=== PATIENT | male | born 1960 | race Caucasian/White ===

== ENCOUNTER 2019-03-30 00:23 | Inpatient (IN) | payer OTHER ==
[2019-03-30] VITALS (8 sets, daily range): BP systolic 99–110; BP diastolic 54–70; PULSE 74–90; RESP 14–23; Ht 170.2 cm; Wt 103.9 kg
[~2019-03-30] VITALS: Ht 170.2 cm; Wt 103.9 kg
[2019-03-30] MEDS ORDERED: SOD CHLORIDE 0.9% 1,000 ML IV STA (01:13)
[2019-03-30] MEDS ORDERED: OCTREOTIDE 50 MCG in SOD CHLORIDE 0.9% 25 ML IVPB STA (01:13)
[2019-03-30] MEDS ORDERED: PANTOPRAZOLE IV 80 MG in SOD CHLORIDE 0.9% 100 ML IVPB STA (01:13)
[2019-03-30] MEDS ORDERED: OCTREOTIDE 500 MCG in SOD CHLORIDE 0.9% 49 ML IV STA (01:13)
[2019-03-30] MEDS ORDERED: PANTOPRAZOLE IV 80 MG in SOD CHLORIDE 0.9% 100 ML IV STA (01:13)
[2019-03-30] MEDS ORDERED: CEFTRIAXONE 1 GM/50 ML (PMX) 50 ML IVPB STA (01:13)
[2019-03-30] MEDS ORDERED: ONDANSETRON 4 MG INJ IV STA (01:13)
[2019-03-30] MEDS ORDERED: SOD CHLORIDE 0.9% 500 ML IV ONE ×2 (07:00→13:00)
[2019-03-30] MEDS: DEXTROSE 5%-0.9% NACL 1,000 ML IV SCH ×2 (08:59→16:50)
[2019-03-30] MEDS ORDERED: ONDANSETRON 4 MG INJ ONE (11:13)
--- NOTE | 2019-03-30 11:50 | CONS ---
Assessment/Plan Assessment/Plan Hospital Course (Demo Recall) Summary Assessment and Plan: Assessment: Active hematemesis Anemia secondary to above Alcoholic liver cirrhosis Plan: Agree with and continue PPI drip/octreotide drip Keep n.p.o. Urgent EGD today, by Endoscopy - risks/benefits/alternatives/indications of procedure and sedation/anesthesia discussed with patient who states understanding and gives informed consent to proceed. Monitor H/H q 6 hrs, will transfuse as needed Patient seen in collaboration with Dr. Cabrera CC: SURYA CABRERA MD ; Consultation Date/Type/Reason Admit Date/Time Date of Consultation: March 30, 2019 Type of Consult GI Reason for Consultation Hematemesis Date/Time of Note DATE: 03/30/19 TIME: 11:42 Hx of Present Illness This is a 58-year-old male with past medical history of alcoholic liver cirrhosis with esophageal varices who presented to the hospital with complaints of hematemesis. Patient states he started feeling poorly yesterday mostly nauseated. Early this morning patient woke up with complaints of nausea and hematemesis. He came to the emergency department for further evaluation. With initial labs patient's hemoglobin is noted to be 11 was rechecked several hours later and decreased to 9. He has been started on PPI drip as well as octreotide NG tube was placed with about 500 mL of blood removed however patient began to have complaints of nausea and gagging and excellently pulled out his NG tube and proceeded to vomit moderate amount of blood with noted clots. At time evaluation patient's blood pressures in the 90s since he feels much better after emesis discussed plan for urgent EGD today. I reviewed risk/benefits of sedation and procedure patient verbalized understanding is agreeable. Of note his last EGD was about 1 year ago at that time he did have esophageal ligation. Patient states he currently does not take any medication other than omeprazole for reflux. Review of Systems: A 12 system, review was conducted and is negative except as noted in the HPI or here. Past Medical History Home Meds No Active Prescriptions or Reported Meds Medications Current Medications Dextrose/Sodium Chloride 1,000 ml @ 120 mls/hr Q8H20M IV Last administered on 03/30/19at 08:59; Admin Dose 120 MLS/HR; Start 03/30/19 at 08:30 Allergies: Coded Allergies: No Known Allergy (Unverified , 5/22/19) Social History Smoking Status: Never smoker Exam/Review of Systems Exam Vitals Vital Signs Date Temp Pulse Resp B/P (MAP) Pulse Ox O2 O2 Flow FiO2 Time Delivery Rate 03/30/19 18 76/53 (61) 97 Room Air 11:04 03/30/19 88 10:16 03/30/19 99.0 00:31 Exam PHYSICAL EXAMINATION: GENERAL: Alert & oriented x 3, in no acute distress SKIN: No lesions HEAD: Normocephalic, atraumatic, no tenderness. EYES: Pupils equal reactive to light, no discharge. EARS/NOSE AND THROAT: Ears normal, nose normal. NECK: Supple, no masses CHEST: Inspection within normal limits. CARDIOVASCULAR: Heart: Regular rate and rhythm RESPIRATORY: Lungs clear to auscultation GASTROINTESTINAL AND LIVER: Abdomen: Soft, non tenderness, non-distended, normoactive bowel sounds. Rectal: Deferred. EXTREMITIES: No cyanosis, clubbing or edema. Results Result Diagram: 03/30/19 0955 03/30/19 0123 Results 24hrs Laboratory Tests Test 03/30/19 01:23 03/30/19 09:55 White Blood Count 12.2 H Red Blood Count 3.37 L Hemoglobin 11.8 L 9.0 #L Hematocrit 34.4 L Mean Corpuscular Volume 102.1 H Mean Corpuscular Hemoglobin 35.0 H Mean Corpuscular Hemoglobin Concent 34.3 Red Cell Distribution Width 13.0 Platelet Count 142 Mean Platelet Volume 11.6 H Immature Granulocytes % 0.200 Neutrophils % 42.5 Lymphocytes % 42.2 Monocytes % 12.5 H Eosinophils % 1.9 Basophils % 0.7 Nucleated Red Blood Cells % 0.0 Immature Granulocytes # 0.030 Neutrophils # 5.2 Lymphocytes # 5.1 H Monocytes # 1.5 H Eosinophils # 0.2 Basophils # 0.1 Nucleated Red Blood Cells # 0.0 Prothrombin Time 14.7 Prothrombin Time Ratio 1.1 INR International Normalized Ratio 1.14 Activated Partial Thromboplast Time 28.7 Sodium Level 140 Potassium Level 3.4 L Chloride Level 107 Carbon Dioxide Level 24 Anion Gap 9 Blood Urea Nitrogen 21 H Creatinine 0.64 Est Glomerular Filtrat Rate mL/min > 60 Glucose Level 197 Calcium Level 8.8 Total Bilirubin 1.3 Direct Bilirubin 0.00 Indirect Bilirubin 1.3 H Aspartate Amino Transf (AST/SGOT) 57 H Alanine Aminotransferase (ALT/SGPT) 48 Alkaline Phosphatase 89 Troponin I < 0.012 Total Protein 6.6 Albumin 3.3 Globulin 3.30 H Albumin/Globulin Ratio 1.00 Medications Medication Current Medications Dextrose/Sodium Chloride 1,000 ml @ 120 mls/hr Q8H20M IV Last administered on 03/30/19at 08:59; Admin Dose 120 MLS/HR; Start 03/30/19 at 08:30 MIGUEL ANGEL WASHINGTON March 30, 2019 11:50
[2019-03-30] MEDS ORDERED: SOD CHLORIDE 0.9% 1,000 ML IV ONE (12:00)
[2019-03-30] MEDS ORDERED: LIDOCAINE 1% (MPF) 5 ML VIAL SC ONE (13:00)
[2019-03-30] MEDS ORDERED: OCTREOTIDE 500 MCG in SOD CHLORIDE 0.9% 49 ML IV ONE (13:07)
[2019-03-30] MEDS ORDERED: PANTOPRAZOLE IV 80 MG in SOD CHLORIDE 0.9% 100 ML IV ONE (13:07)
--- NOTE | 2019-03-30 14:52 | PREAC ---
Date/Time of Note Date/Time of Note DATE: 03/30/19 TIME: 14:50 Anesthesia Eval and Record Evaluation Time Pre-Procedure Interview DATE: 03/30/19 TIME: 14:50 Age 58 Sex male NPO: 8 hrs Preoperative diagnosis GI Bleeding, Esophageal Varicies Planned procedure EGD Past Medical History Past Medical History: Includes Hepatic: Cirrhosis Heme: Anemia Surgery & Anesthesia Issues No known issue Meds Anticoagulation: No Beta Marlon within 24 hr: No Reason Beta Marlon not given: Pt. not on B-Marlon No Active Prescriptions or Reported Meds Current Medications Dextrose/Sodium Chloride 1,000 ml @ 120 mls/hr Q8H20M IV Last administered on 03/30/19at 08:59; Admin Dose 120 MLS/HR; Start 03/30/19 at 08:30 Ondansetron HCl (Zofran Inj) 4 mg Q4H PRN IV N/V; Start 03/30/19 at 12:00 Pantoprazole 80 mg/Sodium Chloride 100 ml @ 10 mls/hr ONCE ONCE IV Last administered on 03/30/19at 13:50; Admin Dose 10 MLS/HR; Start 03/30/19 at 13:07; Stop 03/30/19 at 23:06 Octreotide Acetate 500 mcg/ Sodium Chloride 50 ml @ 5 mls/hr ONCE ONCE IV Last administered on 03/30/19at 13:50; Admin Dose 5 MLS/HR; Start 03/30/19 at 13:07; Stop 03/30/19 at 23:06 Meds reviewed: Yes Allergies Coded Allergies: No Known Allergy (Unverified , 03/30/19) Allergies Reviewed: Yes Labs/Studies Labs Reviewed: Reviewed by anesthesiologist Result Diagram: 03/30/19 1305 03/30/19 0123 Laboratory Tests 03/30/19 01:23 03/30/19 13:05 Blood Bank Test 03/30/19 01:23 Antibody Screen NEGATIVE Blood Type A POSITIVE test: N/A Studies: ECG (n/a), CXR (n/a) Pre-procedure Exam Last vitals Vital Signs Date Temp Pulse Resp B/P (MAP) Pulse Ox O2 O2 Flow FiO2 Time Delivery Rate 03/30/19 78 16 95/59 (71) 97 Room Air 14:00 03/30/19 99.0 00:31 Airway: Adequate mouth opening, Adequate thyromental dist Mallampati: Mallampati II Teeth: Normal Lung: Normal Heart: Normal ASA Physical Status ASA physical status: 3 Emergency: E Planned Anesthetic General/MAC: MAC Planned Pain Management Parenteral pain med Pre-operative Attestations Prior to commencing anesthesia and surgery, the patient was re-evaluated, there was verification of: *The patient's identity *The results of appropriate recent lab work and preoperative vital signs *The above evaluation not changing prior to induction *Anesthetic plan, risk benefits, alternative and complications discussed with patient/family; questions answered; patient/family understands, accepts and wishes to proceed. IRVIN DANIEL MD March 30, 2019 14:52
[2019-03-30] MEDS ORDERED: ONDANSETRON 4 MG INJ IV PRN (15:00)
[2019-03-30] MEDS ORDERED: LABETALOL HCL 20MG INJ IV PRN (15:00)
[2019-03-30] MEDS ORDERED: EPHEDrine 25 MG/5 ML SYG IV PRN (15:00)
[2019-03-30] MEDS ORDERED: FENTAnyl 50 MCG/ML VIAL IV PRN (15:00)
[2019-03-30] MEDS ORDERED: HYDROmorphONE 1 MG/5 ML IV SYRINGE IV PRN (15:00)
[2019-03-30] MEDS ORDERED: hydrALAzine 20 MG INJ IV PRN (15:00)
--- NOTE | 2019-03-30 15:01 | HP ---
DATE OF ADMISSION: 03/30/2019 CHIEF COMPLAINT: Vomiting bright red blood. HISTORY OF PRESENT ILLNESS: A 58-year-old male with remote history of alcohol abuse and gastric vari larry, presents to the emergency room with complaint of bright red blood, hematemesis x1. The patient also noted melena. He denies any abdominal pain. No bright red blood per rectum. The patient has h istory of heavy alcohol abuse for many years and quit drinking 1 year prior to admission. Initial he moglobin was 11.8 with platelet count of 142,000. Repeat hemoglobin was 9. Basic metabolic panel an d liver function tests were within normal limits. The patient was tendency hypotensive and responded to IV fluids. PAST MEDICAL HISTORY: 1. History of alcohol abuse. 2. End-stage liver disease. 3. History of gastric varices. MEDICATIONS PRIOR TO ADMISSION: None. SOCIAL HISTORY: The patient lives at home. He has history of heavy alcohol abuse, but denies drinki ng for the last year prior to admission. PHYSICAL EXAMINATION: GENERAL: Well-developed, well-nourished male who is in no apparent distress. VITAL SIGNS: Blood pressure 96/59, pulse 88, respirations of 14, room air saturation 94%. HEENT: Extraocular muscles are intact. Pupils are equal and reactive to light bilaterally. Sclerae are anicteric. Oropharynx is clear. NG tube in place. LUNGS: Clear to auscultation bilaterally. CARDIAC: Regular rate and rhythm. No murmurs, rubs or gallops. ABDOMEN: Soft, nontender, nondistended. Normoactive bowel sounds. EXTREMITIES: No clubbing, cyanosis or edema. NEUROLOGICAL: Grossly nonfocal. ASSESSMENT: 1. A 58-year-old male with upper gastrointestinal bleed, most likely due to varices. 2. Acute blood loss anemia. 3. End-stage alcoholic liver disease. 4. History of alcohol abuse. The patient reports being sober x1 year. PLAN: 1. Admit to telemetry. Continue IV Protonix drip. Continue IV octreotide. Continue IV fluid. 2. Monitor hemoglobin closely. 3. GI consultation was requested. Dictated By: FELIPE EDWARDS/JESSE Conf#: [id number] DID#: [id number] CC: SURYA KIRBY; PAULIE SANTOYO MD;*[facility]*
--- NOTE | 2019-03-30 15:08 | PAC ---
Date/Time of Note Date/Time of Note DATE: 03/30/19 TIME: 15:07 Post-Anesthesia Notes Post-Anesthesia Note Last documented vital signs Vital Signs Date Temp Pulse Resp B/P (MAP) Pulse Ox O2 O2 Flow FiO2 Time Delivery Rate 03/30/19 98.0 78 16 95/59 (71) 97 Room Air 15:14 03/30/19 99.0 00:31 Activity: WNL Respiratory function: WNL Cardiovascular function: WNL Mental status: Baseline Pain reasonably controlled: Yes Hydration appropriate: Yes Nausea/Vomiting absent: Yes IRVIN DANIEL MD March 30, 2019 15:08
[2019-03-30] MEDS ORDERED: PHENYLephrine (100 MCG/ML) 10ML SYG ONE (15:09)
[2019-03-30] MEDS ORDERED: PROPOFOL 40 ML ONE (15:09)
[2019-03-30] MEDS ORDERED: METOCLOPRAMIDE 10 MG INJ IV ONE (15:30)
--- NOTE | 2019-03-30 19:30 | QN ---
Documentation Comment Observation Note: Time: 4 hours Family Hx: Negative for diabetes Evaluation: Multiple exams showed improving symptoms and no evidence of clinical decompensation. PAULIE SANTOYO MD March 30, 2019 19:30
[2019-03-31] VITALS (24 sets, daily range): BP systolic 81–110; BP diastolic 43–72; PULSE 83–112; RESP 0–20
[2019-03-31] MEDS: DEXTROSE 5%-0.9% NACL 1,000 ML IV SCH ×3 (00:18→17:50)
[2019-03-31] MEDS: ONDANSETRON 4 MG INJ IV PRN ×2 (04:19→10:07)
--- NOTE | 2019-03-31 10:25 | PN ---
Date/Time of Note Date/Time of Note DATE: 03/31/19 TIME: 10:22 Subjective Doing well. No abdominal pain, nausea, or vomiting. Had several melanic stools Objective Vitals Vital Signs Date Temp Pulse Resp B/P (MAP) Pulse Ox O2 O2 Flow FiO2 Time Delivery Rate 03/31/19 90 18 90/57 (68) 98 09:00 03/31/19 98.3 Room Air 08:00 03/30/19 2.0 21:15 Intake and Output 03/30/19 03/30/19 03/31/19 1515:00 23:00 07:00 IntakeIntake Total 2000 ml 645 ml 1040 ml BalanceBalance 2000 ml 645 ml 1040 ml Clear to auscultation bilaterally Regular rate and rhythm Soft nontender nondistended normoactive bowel sounds No edema Nonfocal Results Result Diagram: 03/31/19 0049 03/31/19 0257 Medications Medications Current Medications Dextrose/Sodium Chloride 1,000 ml @ 120 mls/hr Q8H20M IV Last administered on 03/31/19at 00:18; Admin Dose 120 MLS/HR; Start 03/30/19 at 08:30 Ondansetron HCl (Zofran Inj) 4 mg Q4H PRN IV N/V Last administered on 03/31/19at 10:07; Admin Dose 4 MG; Start 03/30/19 at 12:00 VTE Prophylaxis Risk score (from Nsg)>0 risk: 2 SCD applied (from Nsg): Yes Lines/Catheters IV Catheter Type: Saline Lock Madrigal in Place: No Assessment/Plan Assessment/Plan 58-year-old male with upper GI bleed due to varices Status post EGD and banding of varices Acute blood loss anemia End-stage alcoholic liver disease. Sober x1 year Hypotension Continue ICU monitoring Continue octreotide and Protonix drip Repeat hemoglobin Transfuse packed RBC as needed GI follow-up FELIPE GANDHI MD March 31, 2019 10:25
--- NOTE | 2019-03-31 11:47 | PN ---
Date/Time of Note Date/Time of Note DATE: 03/31/19 TIME: 11:40 Assessment/Plan VTE Prophylaxis Risk score (from Ns)>0 risk: 2 SCD applied (from Ns): Yes Pharmacological prophylaxis: other (scds) Lines/Catheters IV [facility]ter Type (from [facility] Saline Lock Urinary Cath still in place: No Assessment/Plan Hospital Course Summary Assessment and Plan: Assessment: Hematemesis- resolved EGD 03/30/2019 Grade II-III/IV esophageal varices Anika-Granger tear at the bottom of variceal channel. Post endoscopic variceal ligation x5 with no residual bleeding Otherwise normal EGD Anemia secondary to above Alcoholic liver cirrhosis Melena Plan: Continue PPI/Octreotide today Start Lactulose- to prevent HE and assist old blood through GI tract Will start Rocephin- given increased in WBC and recent esophageal bleed, in a patient with liver cirrhosis. Maintain close observation- and will continue to closely monitor need to repeat EGD Monitor H/H q 6 hrs, will transfuse as needed F/u EGD in 3 months Patient seen in collaboration with Dr. Cabrera Subjective: Course reviewed with nursing staff Patient interviewed and examined All labs, imaging and other results reviewed The patient with x3 episodes of melena today Decrease in HGB despite 1 units PRBCs given No further c/o of hematemesis. Pt does c/o some nausea Will maintain close observation- currently no plan to repeat EGD However, this may change pending on symptoms. Exam PHYSICAL EXAMINATION: GENERAL: Alert & oriented x 3, in no acute distress SKIN: No lesions HEAD: Normocephalic, atraumatic, no tenderness. EYES: Pupils equal reactive to light, no discharge. EARS/NOSE AND THROAT: Ears normal, nose normal. NECK: Supple, no masses CHEST: Inspection within normal limits. CARDIOVASCULAR: Heart: Regular rate and rhythm RESPIRATORY: Lungs clear to auscultation GASTROINTESTINAL AND LIVER: Abdomen: Soft, non tenderness, non-distended, normoactive bowel sounds. Rectal: Deferred. EXTREMITIES: No cyanosis, clubbing or edema. Result Diagram: 03/31/19 1015 03/31/19 0257 Results 24hrs Laboratory Tests Test 03/30/19 13:05 03/30/19 21:08 03/31/19 00:49 03/31/19 02:57 Hemoglobin 8.4 L 7.8 L 7.3 L Hematocrit 24.6 #L 23.4 L 21.9 L Sodium Level 142 Potassium Level 4.1 Chloride Level 117 H Carbon Dioxide Level 23 Anion Gap 2 L Blood Urea Nitrogen 23 H Creatinine 0.78 Est Glomerular > 60 Filtrat Rate mL/min Glucose Level 240 H Calcium Level 7.2 L Test 03/31/19 10:15 White Blood Count 18.0 #H Red Blood Count 1.94 #L Hemoglobin 6.7 *L Hematocrit 20.1 L Mean Corpuscular 103.6 H Volume Mean Corpuscular 34.5 H Hemoglobin Mean Corpuscular 33.3 Hemoglobin Concent Red Cell 16.1 #H Distribution Width Platelet Count 123 L Mean Platelet Volume 11.2 H Immature 0.900 H Granulocytes % Neutrophils % 71.3 Lymphocytes % 18.0 Monocytes % 8.9 Eosinophils % 0.3 Basophils % 0.6 Nucleated Red Blood 0.0 Cells % Immature 0.160 H Granulocytes # Neutrophils # 12.8 H Lymphocytes # 3.2 H Monocytes # 1.6 H Eosinophils # 0.1 Basophils # 0.1 Nucleated Red Blood 0.0 Cells # Pathologist YES Review (Hematology) Exam/Review of Systems Exam Vitals Vital Signs Date Temp Pulse Resp B/P (MAP) Pulse Ox O2 O2 Flow FiO2 Time Delivery Rate 03/31/19 90 18 90/57 (68) 98 09:00 03/31/19 98.3 Room Air 08:00 03/30/19 2.0 21:15 Intake and Output 03/30/19 03/30/19 03/31/19 1515:00 23:00 07:00 IntakeIntake Total 2000 ml 645 ml 1040 ml BalanceBalance 2000 ml 645 ml 1040 ml Results Results 24hrs Laboratory Tests Test 03/30/19 13:05 03/30/19 21:08 03/31/19 00:49 03/31/19 02:57 Hemoglobin 8.4 L 7.8 L 7.3 L Hematocrit 24.6 #L 23.4 L 21.9 L Sodium Level 142 Potassium Level 4.1 Chloride Level 117 H Carbon Dioxide Level 23 Anion Gap 2 L Blood Urea Nitrogen 23 H Creatinine 0.78 Est Glomerular > 60 Filtrat Rate mL/min Glucose Level 240 H Calcium Level 7.2 L Test 03/31/19 10:15 White Blood Count 18.0 #H Red Blood Count 1.94 #L Hemoglobin 6.7 *L Hematocrit 20.1 L Mean Corpuscular 103.6 H Volume Mean Corpuscular 34.5 H Hemoglobin Mean Corpuscular 33.3 Hemoglobin Concent Red Cell 16.1 #H Distribution Width Platelet Count 123 L Mean Platelet Volume 11.2 H Immature 0.900 H Granulocytes % Neutrophils % 71.3 Lymphocytes % 18.0 Monocytes % 8.9 Eosinophils % 0.3 Basophils % 0.6 Nucleated Red Blood 0.0 Cells % Immature 0.160 H Granulocytes # Neutrophils # 12.8 H Lymphocytes # 3.2 H Monocytes # 1.6 H Eosinophils # 0.1 Basophils # 0.1 Nucleated Red Blood 0.0 Cells # Pathologist YES Review (Hematology) Medications Medication Current Medications Dextrose/Sodium Chloride 1,000 ml @ 120 mls/hr Q8H20M IV Last administered on 03/31/19at 00:18; Admin Dose 120 MLS/HR; Start 03/30/19 at 08:30 Ondansetron HCl (Zofran Inj) 4 mg Q4H PRN IV N/V Last administered on 03/31/19at 10:07; Admin Dose 4 MG; Start 03/30/19 at 12:00 Lactulose (Enulose) 20 gm DAILY PRN PO CONSTIPATION; Start 03/31/19 at 12:00; Status MIGUEL ANGEL FONSECA March 31, 2019 11:47
[2019-03-31] MEDS ORDERED: LACTULOSE 30ML CUP PO PRN (12:00)
[2019-03-31] MEDS: CEFTRIAXONE 1 GM/50 ML (PMX) 50 ML IVPB SCH (14:04)
[2019-04-01] VITALS (25 sets, daily range): BP systolic 88–115; BP diastolic 56–92; PULSE 93–113; RESP 12–26
[2019-04-01] MEDS: DEXTROSE 5%-0.9% NACL 1,000 ML IV SCH ×3 (01:26→18:34)
[2019-04-01] MEDS: PANTOPRAZOLE IV 80 MG in SOD CHLORIDE 0.9% 100 ML IV SCH ×2 (08:00→18:00)
[2019-04-01] MEDS: OCTREOTIDE 1 MG in DEXTROSE 5% 95 ML IV SCH (08:00)
--- NOTE | 2019-04-01 09:57 | PN ---
Date/Time of Note Date/Time of Note DATE: 04/01/19 TIME: 09:54 Subjective Doing well. No abdominal pain, nausea, or vomiting. Continues to have melanic stools Objective Vitals Vital Signs Date Temp Pulse Resp B/P (MAP) Pulse Ox O2 O2 Flow FiO2 Time Delivery Rate 04/01/19 98 18 102/63 95 09:00 (76) 04/01/19 98.4 Room Air 08:00 03/30/19 2.0 21:15 Intake and Output 03/31/19 03/31/19 04/01/19 1515:00 23:00 07:00 IntakeIntake Total 700 ml 500 ml 200 ml BalanceBalance 700 ml 500 ml 200 ml Clear to auscultation bilaterally Rapid rate no murmurs or gallops Soft obese nontender nondistended normoactive bowel sounds No edema Nonfocal Results Result Diagram: 04/01/19 0655 03/31/19 0257 Medications Medications Current Medications Dextrose/Sodium Chloride 1,000 ml @ 120 mls/hr Q8H20M IV Last administered on 04/01/19at 01:26; Admin Dose 120 MLS/HR; Start 03/30/19 at 08:30 Ondansetron HCl (Zofran Inj) 4 mg Q4H PRN IV N/V Last administered on 03/31/19at 10:07; Admin Dose 4 MG; Start 03/30/19 at 12:00 Lactulose (Enulose) 20 gm DAILY PRN PO CONSTIPATION; Start 03/31/19 at 12:00 Ceftriaxone Sodium 50 ml @ 100 mls/hr Q24H IVPB Last administered on 03/31/19at 14:04; Admin Dose 100 MLS/HR; Start 03/31/19 at 12:00 Octreotide Acetate 1 mg/ Dextrose 100 ml @ 5 mls/hr Q20H IV ; Start 04/01/19 at 08:00 Pantoprazole 80 mg/Sodium Chloride 100 ml @ 10 mls/hr Q10H IV ; Start 04/01/19 at 08:00 VTE Prophylaxis Risk score (from Nsg)>0 risk: 2 SCD applied (from Nsg): Yes Lines/Catheters IV Catheter Type: Saline Lock Madrigal in Place: No Assessment/Plan Assessment/Plan 58-year-old male with persistent upper GI bleed Multiple varices, status post ligation Anika-Granger tear Acute blood loss anemia, requiring transfusion with several units of packed RBC History of alcohol abuse End-stage liver disease Transfuse 2 additional units of packed RBC Monitor hemoglobin closely Continue ICU monitoring Repeat EGD at 1230 Case was discussed with GI Plan of care was discussed with the patient FELIPE GANDHI MD April 01, 2019 09:57
--- NOTE | 2019-04-01 11:25 | PREAC ---
Date/Time of Note Date/Time of Note DATE: 04/01/19 TIME: 11:08 Anesthesia Eval and Record Evaluation Time Pre-Procedure Interview DATE: 04/01/19 TIME: 11:08 Age 58 Sex male NPO: 2 hrs Preoperative diagnosis Gi bleed S/P banding Planned procedure EGd Past Medical History Past Medical History: Includes Hepatic: Alcohol abuse Surgery & Anesthesia Issues Hx of difficult intubation Meds Anticoagulation: No Beta Marlon within 24 hr: No Reason Beta Marlon not given: Other No Active Prescriptions or Reported Meds Current Medications Dextrose/Sodium Chloride 1,000 ml @ 120 mls/hr Q8H20M IV Last administered on 04/01/19at 01:26; Admin Dose 120 MLS/HR; Start 03/30/19 at 08:30 Ondansetron HCl (Zofran Inj) 4 mg Q4H PRN IV N/V Last administered on 03/31/19at 10:07; Admin Dose 4 MG; Start 03/30/19 at 12:00 Lactulose (Enulose) 20 gm DAILY PRN PO CONSTIPATION; Start 03/31/19 at 12:00 Ceftriaxone Sodium 50 ml @ 100 mls/hr Q24H IVPB Last administered on 03/31/19at 14:04; Admin Dose 100 MLS/HR; Start 03/31/19 at 12:00 Octreotide Acetate 1 mg/ Dextrose 100 ml @ 5 mls/hr Q20H IV ; Start 04/01/19 at 08:00 Pantoprazole 80 mg/Sodium Chloride 100 ml @ 10 mls/hr Q10H IV ; Start 04/01/19 at 08:00 Meds reviewed: Yes Allergies Coded Allergies: No Known Allergy (Unverified , 03/30/19) Allergies Reviewed: Yes Labs/Studies Labs Reviewed: Reviewed by anesthesiologist Result Diagram: 04/01/19 0655 03/31/19 0257 Laboratory Tests 04/01/19 06:55 test: N/A Studies: ECG Pre-procedure Exam Last vitals Vital Signs Date Temp Pulse Resp B/P (MAP) Pulse Ox O2 O2 Flow FiO2 Time Delivery Rate 04/01/19 98 18 102/63 95 09:00 (76) 04/01/19 98.4 Room Air 08:00 03/30/19 2.0 21:15 Airway: Adequate thyromental dist Mallampati: Mallampati III Teeth: Abnormal (chart review) Lung: Abnormal (chart review) Heart: Abnormal (per Hna P Normal though EF25 % ) ASA Physical Status ASA physical status: 4 Emergency: E (BS elevated if called urgent or emergent GI will proceed > PMD to order coverage) Planned Anesthetic General/MAC: MAC Pre-operative Attestations Prior to commencing anesthesia and surgery, the patient was re-evaluated, there was verification of: *The patient's identity *The results of appropriate recent lab work and preoperative vital signs *The above evaluation not changing prior to induction *Anesthetic plan, risk benefits, alternative and complications discussed with patient/family; questions answered; patient/family understands, accepts and wishes to proceed. TOSIN MON MD April 01, 2019 11:19
--- NOTE | 2019-04-01 11:51 | HPN ---
Date/Time of Note Date/Time of Note DATE: 04/01/19 TIME: 11:51 Interval H&P Admission Note Pt. seen H&P reviewed: No system changes ISHAAN REVELES April 01, 2019 11:51
[2019-04-01] MEDS ORDERED: DEXTROSE 50% 50 ML SYRINGE IV PRN ×2 (12:00)
[2019-04-01] MEDS ORDERED: GLUCOSE GEL 15 GRAM TUBE PO PRN ×2 (12:00)
[2019-04-01] MEDS ORDERED: GLUCAGON 1 MG INJ IM PRN (12:00)
[2019-04-01] MEDS: CEFTRIAXONE 1 GM/50 ML (PMX) 50 ML IVPB SCH (12:00)
[2019-04-01] MEDS ORDERED: GLUCOSE GEL 15 GRAM TUBE BUCCAL PRN (12:00)
[2019-04-01] MEDS: INSULIN ASPART [NOVOLOG] 3 ML PEN SC SCH ×3 (12:09→21:14)
[2019-04-01] MEDS ORDERED: INSULIN ASPART [NOVOLOG] 3 ML PEN SC ONE (14:00)
[2019-04-01] MEDS ORDERED: ACCU-CHEK XX ONE (14:00)
[2019-04-01] MEDS ORDERED: PROPOFOL 40 ML ONE (14:19)
[2019-04-01] MEDS ORDERED: LIDOCAINE 2% (SDV) 5 ML INJ ONE (14:19)
[2019-04-01] MEDS ORDERED: PHENYLephrine (100 MCG/ML) 10ML SYG ONE (14:20)
[2019-04-01] MEDS ORDERED: MIDAZOLAM 1 MG/ML 2 ML INJ ONE (14:20)
[2019-04-01] MEDS ORDERED: ETOMIDATE 20 MG INJ ONE (14:22)
[2019-04-01] MEDS ORDERED: PHENYLephrine 10 MG INJ ONE (14:30)
--- NOTE | 2019-04-01 15:11 | PAC ---
Date/Time of Note Date/Time of Note DATE: 04/01/19 TIME: 15:09 Post-Anesthesia Notes Post-Anesthesia Note Last documented vital signs Vital Signs Date Temp Pulse Resp B/P (MAP) Pulse Ox O2 O2 Flow FiO2 Time Delivery Rate 04/01/19 107 18 108/70 95 14:00 (83) 04/01/19 Room Air 12:20 04/01/19 98.2 12:00 03/30/19 2.0 21:15 Activity: WNL Respiratory function: WNL Cardiovascular function: Other (sinus tach as preop) Mental status: Baseline Pain reasonably controlled: Yes Hydration appropriate: Yes Nausea/Vomiting absent: Yes TOSIN MON MD April 01, 2019 15:11
--- NOTE | 2019-04-01 18:53 | RADRPT ---
Vent Rate: 106 bpm RR Interval: 568 msec NV Interval: 157 msec QRS Duration: 67 msec QT Interval: 375 msec QTC Interval: 498 msec P-R-T [place]: 49 - 46 - 31 degrees Sinus tachycardia...rate> 99 Electronically Signed By: Bi Bah
[2019-04-02] VITALS (37 sets, daily range): BP systolic 80–153; BP diastolic 48–72; PULSE 84–112; RESP 10–24
[2019-04-02] MEDS: ACCUCHECK AT 2AM (Patients on SS coverage) XX SCH (02:00)
[2019-04-02] MEDS: DEXTROSE 5%-0.9% NACL 1,000 ML IV SCH (03:10)
[2019-04-02] MEDS: OCTREOTIDE 1 MG in DEXTROSE 5% 95 ML IV SCH (04:21)
[2019-04-02] MEDS: PANTOPRAZOLE IV 80 MG in SOD CHLORIDE 0.9% 100 ML IV SCH ×2 (04:21→14:00)
[2019-04-02] MEDS ORDERED: INSULIN ASPART [NOVOLOG] 3 ML PEN SC ONE (05:00)
[2019-04-02] MEDS ORDERED: INSULIN GLARGINE [LANTus] (100 UNITS/ML) SYG SC SCH (08:00)
[2019-04-02] MEDS: INSULIN ASPART [NOVOLOG] 3 ML PEN SC SCH ×4 (09:10→21:13)
[2019-04-02] MEDS: INSULIN GLARGINE [LANTus] (100 UNITS/ML) SYG SC SCH (09:10)
[2019-04-02] MEDS: SOD CHLORIDE 0.9% 1,000 ML IV SCH ×2 (11:11→21:17)
--- NOTE | 2019-04-02 11:55 | PN ---
Date/Time of Note Date/Time of Note DATE: 04/02/19 TIME: 11:46 Subjective Doing well. No abdominal pain, nausea, vomiting. Had 2 episodes of melanotic stools earlier Objective Vitals Vital Signs Date Temp Pulse Resp B/P (MAP) Pulse Ox O2 O2 Flow FiO2 Time Delivery Rate 04/02/19 98.3 91 14 96/67 (77) 95 Room Air 08:00 03/30/19 2.0 21:15 Intake and Output 04/01/19 04/01/19 04/02/19 1515:00 23:00 07:00 IntakeIntake Total 460 ml 855 ml 780 ml BalanceBalance 460 ml 855 ml 780 ml Clear to auscultation bilaterally Regular rate and rhythm Soft obese nontender nondistended normoactive bowel sounds Diffuse 1+ edema in bilateral upper and lower extremities Nonfocal Results Result Diagram: 04/02/19 0954 04/02/19 0514 Medications Medications Current Medications Ondansetron HCl (Zofran Inj) 4 mg Q4H PRN IV N/V Last administered on 03/31/19at 10:07; Admin Dose 4 MG; Start 03/30/19 at 12:00 Lactulose (Enulose) 20 gm DAILY PRN PO CONSTIPATION; Start 03/31/19 at 12:00 Ceftriaxone Sodium 50 ml @ 100 mls/hr Q24H IVPB Last administered on 04/01/19at 12:00; Admin Dose 100 MLS/HR; Start 03/31/19 at 12:00 Octreotide Acetate 1 mg/ Dextrose 100 ml @ 5 mls/hr Q20H IV Last administered on 04/02/19at 04:21; Admin Dose 5 MLS/HR; Start 04/01/19 at 08:00 Pantoprazole 80 mg/Sodium Chloride 100 ml @ 10 mls/hr Q10H IV Last administered on 04/02/19at 04:21; Admin Dose 10 MLS/HR; Start 04/01/19 at 08:00 Insulin Aspart (Novolog Insulin Pen) NOVOLOG *MODERATE* ALGORITHM WITH MEALS BE DTIME SC Last administered on 04/02/19at 09:10; Admin Dose 6 UNIT; Start 04/01/19 at 12:00 Miscellaneous Information 1 ea NOTE XX ; Start 04/01/19 at 12:00 Glucose (Glutose) 15 gm Q15M PRN PO DECREASED GLUCOSE; Start 04/01/19 at 12:00 Glucose (Glutose) 22.5 gm Q15M PRN PO DECREASED GLUCOSE; Start 04/01/19 at 12:00 Dextrose (D50w Syringe) 25 ml Q15M PRN IV DECREASED GLUCOSE; Start 04/01/19 at 12:00 Dextrose (D50w Syringe) 50 ml Q15M PRN IV DECREASED GLUCOSE; Start 04/01/19 at 12:00 Glucagon (Glucagen) 1 mg Q15M PRN IM DECREASED GLUCOSE; Start 04/01/19 at 12:00 Glucose (Glutose) 15 gm Q15M PRN BUCCAL DECREASED GLUCOSE; Start 04/01/19 at 12:00 Diagnostic Test (Pha) (Accu-Chek) 1 ea 02 XX ; Start 04/02/19 at 02:00 Insulin Glargine (Lantus) 15 units DAILY@0800 SC Last administered on 04/02/19at 09:10; Admin Dose 15 UNITS; Start 04/02/19 at 08:00 Sodium Chloride 1,000 ml @ 100 mls/hr Q10H IV Last administered on 04/02/19at 11:11; Admin Dose 100 MLS/HR; Start 04/02/19 at 11:00 VTE Prophylaxis Risk score (from Nsg)>0 risk: 2 SCD applied (from Nsg): Yes Lines/Catheters IV Catheter Type: Saline Lock Madrigal in Place: No Assessment/Plan Assessment/Plan 58-year-old male with acute upper GI bleed due to gastric varices and Anika- Granger tear Acute blood loss anemia, status post packed RBC transfusion times several units Persistent upper GI bleed Status post repeat EGD with inability to control the bleed. TIPS was recommended Type 2 diabetes mellitus Continue ICU monitoring Monitor hemoglobin closely and transfuse as needed Arrange transfer to [facility] for TIPS Case was discussed with Dr Lisset GAN. Plan of care was discussed with the spring encaser, medical health researcher, and FELIPE London MD April 02, 2019 11:54
[2019-04-02] MEDS ORDERED: PANT40VI7 IV (12:06)
[2019-04-02] MEDS ORDERED: CEFT1PIG2 IVPB (12:06)
[2019-04-02] MEDS ORDERED: OCTR1000 IJ (12:06)
[2019-04-02] MEDS: CEFTRIAXONE 1 GM/50 ML (PMX) 50 ML IVPB SCH (12:22)
[2019-04-02] MEDS ORDERED: LIDOCAINE 1% (MPF) 5 ML VIAL SC ONE (13:30)
--- NOTE | 2019-04-02 15:08 | PN ---
Date/Time of Note Date/Time of Note DATE: 04/02/19 TIME: 14:54 Assessment/Plan VTE Prophylaxis Risk score (from Ns)>0 risk: 2 SCD applied (from Ns): Yes Pharmacological prophylaxis: other (scds) Lines/Catheters IV 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 Post endoscopic variceal ligation x5 with no residual bleeding Otherwise normal EGD Repeat EGD 04/01/2019 Upper GI bleedpossible variceal versus continued bleeding from unhealed Anika-Granger tear Recent variceal bandingbands are in place and not dislodged Esophageal varices appear to be smaller Unable to see an isolated Anika-Granger tear Red blood noted along the GE junction and stomach and this obscures visualization despite aggressive lavage and suctioning Anemia secondary to above Alcoholic liver cirrhosis Melena Leukocytosis Plan: Patient has received 4 units of Packed cells, in the past 24hours- will order 2 units FFP- continue to closely monitor patient. Recommend urgent transfer to [place] or tertiary center for possible TIPS placement given recurrent upper GI bleed possible 2/2 to esophageal varices vs unhealed Anika-Granger tear. Continue PPI/Octreotide at this time Continue Rocephin- given increased in WBC and recent esophageal bleed, in a patient with liver cirrhosis.- x7 days Monitor H/H q 6 hrs, will transfuse as needed F/u EGD in 3 months Patient seen in collaboration with Dr. Cabrera/Lisset Subjective: Course reviewed with nursing staff Patient interviewed and examined All labs, imaging and other results reviewed Pt resting in bed, no c/on/v- currently having melena discussed current plan of care. Family at bedside Maintain close observation. Exam PHYSICAL EXAMINATION: GENERAL: Alert & oriented x 3 SKIN: No lesions HEAD: Normocephalic, atraumatic, no tenderness. EYES: Pupils equal reactive to light, no discharge. EARS/NOSE AND THROAT: Ears normal, nose normal. NECK: Supple, no masses CHEST: Inspection within normal limits. CARDIOVASCULAR: Heart: Regular rate and rhythm RESPIRATORY: Lungs clear to auscultation GASTROINTESTINAL AND LIVER: Abdomen: Soft, non tenderness, non-distended, normoactive bowel sounds. Rectal: Deferred. EXTREMITIES: No cyanosis, clubbing or edema. Result Diagram: 04/02/19 1253 04/02/19 0514 Results 24hrs Laboratory Tests Test 04/01/19 15:12 04/01/19 16:43 04/01/19 20:59 04/02/19 03:29 White Blood Count 19.3 H Red Blood Count 2.35 L Hemoglobin 7.4 L Hematocrit 22.4 L Mean Corpuscular 95.3 Volume Mean Corpuscular 31.5 Hemoglobin Mean Corpuscular 33.0 Hemoglobin Concen t Red Cell 18.6 H Distribution Width Platelet Count 112 L Mean Platelet 10.8 H Volume Immature 1.000 H Granulocytes % Neutrophils % 59.8 Lymphocytes % 23.7 Monocytes % 14.7 H Eosinophils % 0.3 Basophils % 0.5 Nucleated Red 1.7 H Blood Cells % Immature 0.200 H Granulocytes # Neutrophils # 11.5 H Lymphocytes # 4.6 H Monocytes # 2.8 H Eosinophils # 0.1 Basophils # 0.1 Nucleated Red 0.3 H Blood Cells # Prothrombin Time 17.0 H Prothrombin Time 1.3 Ratio INR International 1.37 Normalized Ratio Bedside Glucose 229 H 285 H 447 *H Test 04/02/19 05:14 04/02/19 05:14 04/02/19 05:18 04/02/19 08:14 Sodium Level 138 Potassium Level 4.1 Chloride Level 115 H Carbon Dioxide 19 L Level Anion Gap 4 L Blood Urea 39 H Nitrogen Creatinine 0.82 Est Glomerular > 60 Filtrat Rate mL/min Glucose Level 271 H Calcium Level 6.8 L Lab Scanned BLOOD TRANSFUSIO Report N Bedside Glucose 302 H 243 H Test 04/02/19 09:54 04/02/19 12:25 04/02/19 12:53 White Blood Count 20.7 H Red Blood Count 2.69 L Hemoglobin 8.3 L 7.8 L Hematocrit 25.3 L 23.5 L Mean Corpuscular 94.1 Volume Mean Corpuscular 30.9 Hemoglobin Mean Corpuscular 32.8 Hemoglobin Concen t Red Cell 17.8 H Distribution Width Platelet Count 119 L Mean Platelet 11.0 H Volume Immature 1.800 H Granulocytes % Neutrophils % 53.7 Lymphocytes % 29.8 Monocytes % 12.7 H Eosinophils % 1.4 Basophils % 0.6 Nucleated Red 4.2 H Blood Cells % Immature 0.380 H Granulocytes # Neutrophils # 11.1 H Lymphocytes # 6.2 H Monocytes # 2.6 H Eosinophils # 0.3 Basophils # 0.1 Nucleated Red 0.9 H Blood Cells # Bedside Glucose 215 Exam/Review of Systems Exam Vitals Vital Signs Date Temp Pulse Resp B/P (MAP) Pulse Ox O2 O2 Flow FiO2 Time Delivery Rate 04/02/19 91 17 102/66 100 14:00 (78) 04/02/19 Room Air 12:00 04/02/19 98.3 08:00 03/30/19 2.0 21:15 Intake and Output 04/01/19 04/01/19 04/02/19 1515:00 23:00 07:00 IntakeIntake Total 460 ml 855 ml 780 ml BalanceBalance 460 ml 855 ml 780 ml Results Results 24hrs Laboratory Tests Test 04/01/19 15:12 04/01/19 16:43 04/01/19 20:59 04/02/19 03:29 White Blood Count 19.3 H Red Blood Count 2.35 L Hemoglobin 7.4 L Hematocrit 22.4 L Mean Corpuscular 95.3 Volume Mean Corpuscular 31.5 Hemoglobin Mean Corpuscular 33.0 Hemoglobin Concen t Red Cell 18.6 H Distribution Width Platelet Count 112 L Mean Platelet 10.8 H Volume Immature 1.000 H Granulocytes % Neutrophils % 59.8 Lymphocytes % 23.7 Monocytes % 14.7 H Eosinophils % 0.3 Basophils % 0.5 Nucleated Red 1.7 H Blood Cells % Immature 0.200 H Granulocytes # Neutrophils # 11.5 H Lymphocytes # 4.6 H Monocytes # 2.8 H Eosinophils # 0.1 Basophils # 0.1 Nucleated Red 0.3 H Blood Cells # Prothrombin Time 17.0 H Prothrombin Time 1.3 Ratio INR International 1.37 Normalized Ratio Bedside Glucose 229 H 285 H 447 *H Test 04/02/19 05:14 04/02/19 05:14 04/02/19 05:18 04/02/19 08:14 Sodium Level 138 Potassium Level 4.1 Chloride Level 115 H Carbon Dioxide 19 L Level Anion Gap 4 L Blood Urea 39 H Nitrogen Creatinine 0.82 Est Glomerular > 60 Filtrat Rate mL/min Glucose Level 271 H Calcium Level 6.8 L Lab Scanned BLOOD TRANSFUSIO Report N Bedside Glucose 302 H 243 H Test 04/02/19 09:54 04/02/19 12:25 04/02/19 12:53 White Blood Count 20.7 H Red Blood Count 2.69 L Hemoglobin 8.3 L 7.8 L Hematocrit 25.3 L 23.5 L Mean Corpuscular 94.1 Volume Mean Corpuscular 30.9 Hemoglobin Mean Corpuscular 32.8 Hemoglobin Concen t Red Cell 17.8 H Distribution Width Platelet Count 119 L Mean Platelet 11.0 H Volume Immature 1.800 H Granulocytes % Neutrophils % 53.7 Lymphocytes % 29.8 Monocytes % 12.7 H Eosinophils % 1.4 Basophils % 0.6 Nucleated Red 4.2 H Blood Cells % Immature 0.380 H Granulocytes # Neutrophils # 11.1 H Lymphocytes # 6.2 H Monocytes # 2.6 H Eosinophils # 0.3 Basophils # 0.1 Nucleated Red 0.9 H Blood Cells # Bedside Glucose 215 Medications Medication Current Medications Ondansetron HCl (Zofran Inj) 4 mg Q4H PRN IV N/V Last administered on 03/31/19at 10:07; Admin Dose 4 MG; Start 03/30/19 at 12:00 Lactulose (Enulose) 20 gm DAILY PRN PO CONSTIPATION; Start 03/31/19 at 12:00 Ceftriaxone Sodium 50 ml @ 100 mls/hr Q24H IVPB Last administered on 04/02/19at 12:22; Admin Dose 100 MLS/HR; Start 03/31/19 at 12:00 Octreotide Acetate 1 mg/ Dextrose 100 ml @ 5 mls/hr Q20H IV Last administered on 04/02/19at 04:21; Admin Dose 5 MLS/HR; Start 04/01/19 at 08:00 Pantoprazole 80 mg/Sodium Chloride 100 ml @ 10 mls/hr Q10H IV Last administered on 04/02/19at 04:21; Admin Dose 10 MLS/HR; Start 04/01/19 at 08:00 Insulin Aspart (Novolog Insulin Pen) NOVOLOG *MODERATE* ALGORITHM WITH MEALS BEDTIME SC Last administered on 04/02/19at 12:38; Admin Dose 4 UNIT; Start 04/01/19 at 12:00 Miscellaneous Information 1 ea NOTE XX ; Start 04/01/19 at 12:00 Glucose (Glutose) 15 gm Q15M PRN PO DECREASED GLUCOSE; Start 04/01/19 at 12:00 Glucose (Glutose) 22.5 gm Q15M PRN PO DECREASED GLUCOSE; Start 04/01/19 at 12:00 Dextrose (D50w Syringe) 25 ml Q15M PRN IV DECREASED GLUCOSE; Start 04/01/19 at 12:00 Dextrose (D50w Syringe) 50 ml Q15M PRN IV DECREASED GLUCOSE; Start 04/01/19 at 12:00 Glucagon (Glucagen) 1 mg Q15M PRN IM DECREASED GLUCOSE; Start 04/01/19 at 12:00 Glucose (Glutose) 15 gm Q15M PRN BUCCAL DECREASED GLUCOSE; Start 04/01/19 at 12:00 Diagnostic Test (Pha) (Accu-Chek) 1 ea 02 XX ; Start 04/02/19 at 02:00 Insulin Glargine (Lantus) 15 units DAILY@0800 SC Last administered on 04/02/19at 09:10; Admin Dose 15 UNITS; Start 04/02/19 at 08:00 Sodium Chloride 1,000 ml @ 100 mls/hr Q10H IV Last administered on 04/02/19at 11:11; Admin Dose 100 MLS/HR; Start 04/02/19 at 11:00 MIGUEL ANGEL [place] April 02, 2019 15:04
[2019-04-03] VITALS (29 sets, daily range): BP systolic 103–156; BP diastolic 51–89; PULSE 71–95; RESP 12–28
[2019-04-03] MEDS: PANTOPRAZOLE IV 80 MG in SOD CHLORIDE 0.9% 100 ML IV SCH ×3 (01:23→21:00)
[2019-04-03] MEDS: OCTREOTIDE 1 MG in DEXTROSE 5% 95 ML IV SCH ×2 (01:24→08:01)
[2019-04-03] MEDS: ACCUCHECK AT 2AM (Patients on SS coverage) XX SCH (02:00)
[2019-04-03] MEDS: SOD CHLORIDE 0.9% 1,000 ML IV SCH ×2 (06:35→17:00)
[2019-04-03] MEDS: INSULIN ASPART [NOVOLOG] 3 ML PEN SC SCH ×4 (08:55→21:00)
[2019-04-03] MEDS: INSULIN GLARGINE [LANTus] (100 UNITS/ML) SYG SC SCH (08:55)
--- NOTE | 2019-04-03 09:34 | PN ---
Date/Time of Note Date/Time of Note DATE: 04/03/19 TIME: 09:28 Subjective Doing well. No abdominal pain, nausea, or vomiting. Continues to have melena and bloody stools Objective Vitals Vital Signs Date Temp Pulse Resp B/P (MAP) Pulse Ox O2 O2 Flow FiO2 Time Delivery Rate 04/03/19 98.9 82 13 128/59 94 Room Air 08:00 (82) 03/30/19 2.0 21:15 Intake and Output 04/02/19 04/02/19 04/03/19 1515:00 23:00 07:00 IntakeIntake Total 590 ml 1390 ml 1405 ml BalanceBalance 590 ml 1390 ml 1405 ml Lungs clear to auscultation bilaterally Cardiac regular rate and rhythm Abdomen soft nontender nondistended normoactive bowel sounds No edema Nonfocal Results Result Diagram: 04/03/19 0800 04/03/19 0215 Medications Medications Current Medications Ondansetron HCl (Zofran Inj) 4 mg Q4H PRN IV N/V Last administered on 03/31/19at 10:07; Admin Dose 4 MG; Start 03/30/19 at 12:00 Lactulose (Enulose) 20 gm DAILY PRN PO CONSTIPATION; Start 03/31/19 at 12:00 Ceftriaxone Sodium 50 ml @ 100 mls/hr Q24H IVPB Last administered on 04/02/19at 12:22; Admin Dose 100 MLS/HR; Start 03/31/19 at 12:00 Octreotide Acetate 1 mg/ Dextrose 100 ml @ 5 mls/hr Q20H IV Last administered on 04/03/19at 08:01; Admin Dose 5 MLS/HR; Start 04/01/19 at 08:00 Pantoprazole 80 mg/Sodium Chloride 100 ml @ 10 mls/hr Q10H IV Last administered on 04/03/19at 08:02; Admin Dose 10 MLS/HR; Start 04/01/19 at 08:00 Insulin Aspart (Novolog Insulin Pen) NOVOLOG *MODERATE* ALGORITHM WITH MEALS BEDTIME SC Last administered on 04/03/19at 08:55; Admin Dose 4 UNIT; Start 04/01/19 at 12:00 Miscellaneous Information 1 ea NOTE XX ; Start 04/01/19 at 12:00 Glucose (Glutose) 15 gm Q15M PRN PO DECREASED GLUCOSE; Start 04/01/19 at 12:00 Glucose (Glutose) 22.5 gm Q15M PRN PO DECREASED GLUCOSE; Start 04/01/19 at 12:00 Dextrose (D50w Syringe) 25 ml Q15M PRN IV DECREASED GLUCOSE; Start 04/01/19 at 12:00 Dextrose (D50w Syringe) 50 ml Q15M PRN IV DECREASED GLUCOSE; Start 04/01/19 at 12:00 Glucagon (Glucagen) 1 mg Q15M PRN IM DECREASED GLUCOSE; Start 04/01/19 at 12:00 Glucose (Glutose) 15 gm Q15M PRN BUCCAL DECREASED GLUCOSE; Start 04/01/19 at 12:00 Diagnostic Test (Pha) (Accu-Chek) 1 ea 02 XX Last administered on 04/03/19at 02:00; Admin Dose 1 EA; Start 04/02/19 at 02:00 Insulin Glargine (Lantus) 15 units DAILY@0800 SC Last administered on 04/02/19at 09:10; Admin Dose 15 UNITS; Start 04/02/19 at 08:00 Sodium Chloride 1,000 ml @ 100 mls/hr Q10H IV Last administered on 04/03/19at 06:35; Admin Dose 100 MLS/HR; Start 04/02/19 at 11:00 VTE Prophylaxis Risk score (from Nsg)>0 risk: 2 SCD applied (from Nsg): Yes Lines/Catheters IV Catheter Type: Saline Lock Madrigal in Place: No Assessment/Plan Assessment/Plan 58-year-old male with acute and persistent upper GI bleed Gastric varices and Anika-Granger tear Alcoholic liver disease, sober x1 year Acute blood loss anemia, requiring 2 units of packed RBC H 24 hours Thrombocytopenia Continue ICU monitoring Transfuse packed RBC as needed Continue octreotide and Protonix drip We have contacted several hospitals and patient is not being accepted for transfer. No interventional radiology is available until Thursday. Case was discussed with the medical sales associate and the fishing worker is, Dr Darling. I asked them to contact [facility] again. Plan of care was discussed with the patient FELIPE GANDHI MD April 03, 2019 09:34
[2019-04-03] MEDS: CEFTRIAXONE 1 GM/50 ML (PMX) 50 ML IVPB SCH (12:27)
--- NOTE | 2019-04-03 17:05 | PN ---
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 Post endoscopic variceal ligation x5 with no residual bleeding Otherwise normal EGD Repeat EGD 04/01/2019 Upper GI bleedpossible variceal versus continued bleeding from unhealed Anika-Granger tear Recent variceal bandingbands are in place and not dislodged Esophageal varices appear to be smaller Unable to see an isolated Anika-Granger tear Red blood noted along the GE junction and stomach and this obscures visualization despite aggressive lavage and suctioning Anemia secondary to above Alcoholic liver cirrhosis Melena Leukocytosis Plan: Patient has received 4 units of Packed cells, in the past 24hours- will order 2 units FFP- continue to closely monitor patient. Recommend urgent transfer to tertiary center for possible TIPS placement given recurrent upper GI bleed possible 2/2 to esophageal varices vs unhealed Anika- Granger tear. Continue PPI/Octreotide given continuos bleed- when hgb stabilizes will d/c gtts and change PPI to bid Continue Rocephin- given increased in WBC and recent esophageal bleed, in a patient with liver cirrhosis.- x7 days Monitor H/H q 6 hrs, will transfuse as needed F/u EGD in 3 months Patient seen in collaboration with Dr. Cabrera/Lisset Subjective: Course reviewed with nursing staff Patient interviewed and examined All labs, imaging and other results reviewed HGB is remains low but is stable- 2 units of FFP given Patient continues to have bloody/melanotic stools- pending transfer Generalized swelling - noted Currently no n/v or abdominal pain Exam PHYSICAL EXAMINATION: GENERAL: Alert & oriented x 3 SKIN: No lesions HEAD: Normocephalic, atraumatic, no tenderness. EYES: Pupils equal reactive to light, no discharge. EARS/NOSE AND THROAT: Ears normal, nose normal. NECK: Supple, no masses CHEST: Inspection within normal limits. CARDIOVASCULAR: Heart: Regular rate and rhythm RESPIRATORY: Lungs clear to auscultation GASTROINTESTINAL AND LIVER: Abdomen: Soft, non tenderness, non-distended, normoactive bowel sounds. Rectal: Deferred. EXTREMITIES: No cyanosis, clubbing or edema. Result Diagram: 04/03/19 1224 04/03/19 0215 Results 24hrs Laboratory Tests Test 04/02/19 19:05 04/02/19 21:08 04/03/19 02:15 04/03/19 02:42 White Blood Count 16.0 #H 13.9 H 13.8 H Red Blood Count 2.08 #L 2.58 #L 2.53 L Hemoglobin 6.5 *L 8.1 #L 7.8 L Hematocrit 19.9 L 24.2 #L 23.8 L Mean Corpuscular 95.7 93.8 94.1 Volume Mean Corpuscular 31.3 31.4 30.8 Hemoglobin Mean Corpuscular 32.7 33.5 32.8 Hemoglobin Concent Red Cell 17.8 H 16.8 H 15.9 H Distribution Width Platelet Count 101 L 89 L 91 L Mean Platelet Volume 10.8 H 12.2 H 10.5 H Immature 2.100 H 1.600 H 1.300 H Granulocytes % Neutrophils % 58.1 58.5 Segmented 73 Neutrophils % (Manual) Band Neutrophils % 1 (Manual) Lymphocytes % 23.0 22.8 Lymphocytes % 12 L (Manual) Monocytes % 14.9 H 15.1 H Monocytes % (Manual) 12 H Eosinophils % 1.9 1.7 Eosinophils % 2 (Manual) Basophils % 0.5 0.6 Nucleated Red Blood 6 H 3.7 H 3.9 H Cells % Immature 0.330 H 0.220 H 0.180 H Granulocytes # Neutrophils # 8.1 H 8.1 H Neutrophils # 11.7 H (Manual) Band Neutrophils # 0.1 Lymphocytes (Manual) 1.9 Lymphocytes # 3.2 H 3.1 H Monocytes # 2.1 H 2.1 H Monocytes # (Manual) 1.9 H Eosinophils # 0.3 0.2 Basophils # 0.1 0.1 Nucleated Red Blood 0.5 H 0.5 H Cells # Platelet Estimate DECREASED Polychromasia 2+ Anisocytosis 2+ Microcytosis 2+ Macrocytosis 1+ Bedside Glucose 193 Sodium Level 139 Potassium Level 4.1 Chloride Level 112 H Carbon Dioxide Level 23 Anion Gap 4 L Blood Urea Nitrogen 29 H Creatinine 0.74 Est Glomerular > 60 Filtrat Rate mL/min Glucose Level 173 Calcium Level 6.9 L Test 04/03/19 03:07 04/03/19 08:00 04/03/19 08:01 04/03/19 12:24 Bedside Glucose 201 197 179 White Blood Count 12.5 H 12.8 H Red Blood Count 2.46 L 2.55 L Hemoglobin 7.7 L 7.9 L Hematocrit 23.2 L 24.1 L Mean Corpuscular 94.3 94.5 Volume Mean Corpuscular 31.3 31.0 Hemoglobin Mean Corpuscular 33.2 32.8 Hemoglobin Concent Red Cell 16.4 H 17.8 H Distribution Width Platelet Count 93 L 105 L Mean Platelet Volume 10.7 H 10.8 H Immature 1.000 H 1.600 H Granulocytes % Neutrophils % 56.2 57.1 Lymphocytes % 26.8 23.0 Monocytes % 13.5 H 15.1 H Eosinophils % 2.0 2.6 Basophils % 0.5 0.6 Nucleated Red Blood 3.0 H 2.3 H Cells % Immature 0.130 H 0.200 H Granulocytes # Neutrophils # 7.0 7.3 Lymphocytes # 3.4 H 2.9 Monocytes # 1.7 H 1.9 H Eosinophils # 0.3 0.3 Basophils # 0.1 0.1 Nucleated Red Blood 0.4 H 0.3 H Cells # Exam/Review of Systems Exam Vitals Vital Signs Date Temp Pulse Resp B/P (MAP) Pulse Ox O2 O2 Flow FiO2 Time Delivery Rate 04/03/19 77 23 144/76 15:00 (98) 04/03/19 94 14:00 04/03/19 98.3 Room Air 12:00 03/30/19 2.0 21:15 Intake and Output 04/02/19 04/02/19 04/03/19 1515:00 23:00 07:00 IntakeIntake Total 590 ml 1390 ml 1405 ml BalanceBalance 590 ml 1390 ml 1405 ml Results Results 24hrs Laboratory Tests Test 04/02/19 19:05 04/02/19 21:08 04/03/19 02:15 04/03/19 02:42 White Blood Count 16.0 #H 13.9 H 13.8 H Red Blood Count 2.08 #L 2.58 #L 2.53 L Hemoglobin 6.5 *L 8.1 #L 7.8 L Hematocrit 19.9 L 24.2 #L 23.8 L Mean Corpuscular 95.7 93.8 94.1 Volume Mean Corpuscular 31.3 31.4 30.8 Hemoglobin Mean Corpuscular 32.7 33.5 32.8 Hemoglobin Concent Red Cell 17.8 H 16.8 H 15.9 H Distribution Width Platelet Count 101 L 89 L 91 L Mean Platelet Volume 10.8 H 12.2 H 10.5 H Immature 2.100 H 1.600 H 1.300 H Granulocytes % Neutrophils % 58.1 58.5 Segmented 73 Neutrophils % (Manual) Band Neutrophils % 1 (Manual) Lymphocytes % 23.0 22.8 Lymphocytes % 12 L (Manual) Monocytes % 14.9 H 15.1 H Monocytes % (Manual) 12 H Eosinophils % 1.9 1.7 Eosinophils % 2 (Manual) Basophils % 0.5 0.6 Nucleated Red Blood 6 H 3.7 H 3.9 H Cells % Immature 0.330 H 0.220 H 0.180 H Granulocytes # Neutrophils # 8.1 H 8.1 H Neutrophils # 11.7 H (Manual) Band Neutrophils # 0.1 Lymphocytes (Manual) 1.9 Lymphocytes # 3.2 H 3.1 H Monocytes # 2.1 H 2.1 H Monocytes # (Manual) 1.9 H Eosinophils # 0.3 0.2 Basophils # 0.1 0.1 Nucleated Red Blood 0.5 H 0.5 H Cells # Platelet Estimate DECREASED Polychromasia 2+ Anisocytosis 2+ Microcytosis 2+ Macrocytosis 1+ Bedside Glucose 193 Sodium Level 139 Potassium Level 4.1 Chloride Level 112 H Carbon Dioxide Level 23 Anion Gap 4 L Blood Urea Nitrogen 29 H Creatinine 0.74 Est Glomerular > 60 Filtrat Rate mL/min Glucose Level 173 Calcium Level 6.9 L Test 04/03/19 03:07 04/03/19 08:00 04/03/19 08:01 04/03/19 12:24 Bedside Glucose 201 197 179 White Blood Count 12.5 H 12.8 H Red Blood Count 2.46 L 2.55 L Hemoglobin 7.7 L 7.9 L Hematocrit 23.2 L 24.1 L Mean Corpuscular 94.3 94.5 Volume Mean Corpuscular 31.3 31.0 Hemoglobin Mean Corpuscular 33.2 32.8 Hemoglobin Concent Red Cell 16.4 H 17.8 H Distribution Width Platelet Count 93 L 105 L Mean Platelet Volume 10.7 H 10.8 H Immature 1.000 H 1.600 H Granulocytes % Neutrophils % 56.2 57.1 Lymphocytes % 26.8 23.0 Monocytes % 13.5 H 15.1 H Eosinophils % 2.0 2.6 Basophils % 0.5 0.6 Nucleated Red Blood 3.0 H 2.3 H Cells % Immature 0.130 H 0.200 H Granulocytes # Neutrophils # 7.0 7.3 Lymphocytes # 3.4 H 2.9 Monocytes # 1.7 H 1.9 H Eosinophils # 0.3 0.3 Basophils # 0.1 0.1 Nucleated Red Blood 0.4 H 0.3 H Cells # Medications Medication Current Medications Ondansetron HCl (Zofran Inj) 4 mg Q4H PRN IV N/V Last administered on 03/31/19at 10:07; Admin Dose 4 MG; Start 03/30/19 at 12:00 Lactulose (Enulose) 20 gm DAILY PRN PO CONSTIPATION; Start 03/31/19 at 12:00 Ceftriaxone Sodium 50 ml @ 100 mls/hr Q24H IVPB Last administered on 04/03/19at 12:27; Admin Dose 100 MLS/HR; Start 03/31/19 at 12:00 Octreotide Acetate 1 mg/ Dextrose 100 ml @ 5 mls/hr Q20H IV Last administered on 04/03/19at 08:01; Admin Dose 5 MLS/HR; Start 04/01/19 at 08:00 Pantoprazole 80 mg/Sodium Chloride 100 ml @ 10 mls/hr Q10H IV Last administered on 04/03/19at 08:02; Admin Dose 10 MLS/HR; Start 04/01/19 at 08:00 Insulin Aspart (Novolog Insulin Pen) NOVOLOG *MODERATE* ALGORITHM WITH MEALS BEDTIME SC Last administered on 04/03/19at 08:55; Admin Dose 4 UNIT; Start 04/01/19 at 12:00 Miscellaneous Information 1 ea NOTE XX ; Start 04/01/19 at 12:00 Glucose (Glutose) 15 gm Q15M PRN PO DECREASED GLUCOSE; Start 04/01/19 at 12:00 Glucose (Glutose) 22.5 gm Q15M PRN PO DECREASED GLUCOSE; Start 04/01/19 at 12:00 Dextrose (D50w Syringe) 25 ml Q15M PRN IV DECREASED GLUCOSE; Start 04/01/19 at 12:00 Dextrose (D50w Syringe) 50 ml Q15M PRN IV DECREASED GLUCOSE; Start 04/01/19 at 12:00 Glucagon (Glucagen) 1 mg Q15M PRN IM DECREASED GLUCOSE; Start 04/01/19 at 12:00 Glucose (Glutose) 15 gm Q15M PRN BUCCAL DECREASED GLUCOSE; Start 04/01/19 at 12:00 Diagnostic Test (Pha) (Accu-Chek) 1 ea 02 XX Last administered on 04/03/19at 02:00; Admin Dose 1 EA; Start 04/02/19 at 02:00 Insulin Glargine (Lantus) 15 units DAILY@0800 SC Last administered on 04/03/19at 08:55; Admin Dose 15 UNITS; Start 04/02/19 at 08:00 Sodium Chloride 1,000 ml @ 100 mls/hr Q10H IV Last administered on 04/03/19at 06:35; Admin Dose 100 MLS/HR; Start 04/02/19 at 11:00 MIGUEL ANGEL [place] April 03, 2019 17:04
[2019-04-03] MEDS ORDERED: FUROSEMIDE 20 MG INJ IV ONE (18:00)
--- NOTE | 2019-04-04 15:04 | DS ---
DATE OF ADMISSION: 04/01/2019 DATE OF DISCHARGE: 04/03/2019 DISCHARGE DIAGNOSES: 1. A 58-year-old male with acute and persistent upper gastrointestinal bleed. 2. Status post EGD x2. 3. Gastric varices and Anika-Granger tear. 4. End-stage alcoholic liver disease, sober x1 year. 5. Acute blood loss anemia requiring multiple units of packed RBC. 6. Thrombocytopenia. HOSPITAL COURSE: A 58-year-old male with long history of alcoholic and end-stage alcoholic liver dis ease, presented to emergency room with complaint of melena and bloody stools. The patient was diagno sed with upper GI bleed. He was seen in consultation by Dr. Reveles. EGD showed gastric variceal bleedi ng and Anika-Granger tear. The patient received IV octreotide and IV Protonix throughout the hospita lization. He continued to have melena. The patient requires daily packed RBC transfusions. He unde rwent repeat EGD and noted to have persistent oozing. No further intervention was possible to stop t he bleeding. TIPS procedure was recommended. I contacted several hospitals. The patient was finally accepted by [facility] in order to u ndergo a TIPS procedure. Hemoglobin at the time of discharge was 8.2. The case was discussed with h ospitalist and the overnight caregiver at [facility]. I asked them to resume octreotide and Proton ix drip following patient's arrival to their facility. Discharge planning was discussed with Dr. Reveles. Dictated By: FELIPE EDWARDS/JESSE Conf#: [id number] DID#: [id number] CC: ISHAAN REVELES MD;*EndCC*
== END 2019-04-03 22:40 | disposition short-term general hospital (02) | DRG 432 ==
LOC: E/R 00:23 → ICU 04:10 → INTOOBSV 04:10 → EDBEDREQSVC 12:50 → OBSVTOIN 04-01 10:46
PROVIDERS: ADMIT Internal Medicine; ATTEND Internal Medicine
PROC: 06L38CZ Occlusion of Esophageal Vein with Extraluminal Device, Via Natural or Artificial Opening Endoscopic (ICD-10-PCS; principal; 2019-03-30 13:30)
PROC: 30233N1 Transfusion of Nonautologous Red Blood Cells into Peripheral Vein, Percutaneous Approach (ICD-10-PCS; 2019-03-31)
PROC: 0DJ08ZZ Inspection of Upper Intestinal Tract, Via Natural or Artificial Opening Endoscopic (ICD-10-PCS; 2019-04-01)
PROC: 30233K1 Transfusion of Nonautologous Frozen Plasma into Peripheral Vein, Percutaneous Approach (ICD-10-PCS; 2019-04-02)
DX: K70.30 Alcoholic cirrhosis of liver without ascites (principal); K22.6 Gastro-esophageal laceration-hemorrhage syndrome; I85.01 Esophageal varices with bleeding; D62 Acute posthemorrhagic anemia; K92.0 Hematemesis; K92.1 Melena; I95.9 Hypotension, unspecified; D69.6 Thrombocytopenia, unspecified
CPT/HCPCS: 36430; 71045; 80048; 80053; 82962; 84484; 85014; 85018; 85025; 85610; 85730; 86850; 86900; 86901; 86920; 87081; 93005; 99217; C9113; G0378; J0696; J1815; J1940; J2250; J2354; J2370; J2405; J7030; J7040; J7042; P9016; P9059